=== PATIENT | male | born 1935 | race Caucasian/White ===

== ENCOUNTER 2017-05-13 22:33 | Emergency (ER) | payer OTHER ==
[2017-05-13] MEDS ORDERED: NS 0.9% 1000 ML* 1,000 ML IV SCH (23:15)
[2017-05-13] MEDS ORDERED: Lidocaine/Epineph/Tetraca SOL* (LET solution) 4 ML BTL TOPICAL ONE (23:41)
[2017-05-13] MEDS ORDERED: Gelfoam 12-7 ADSORBABL SPONGE* 1 EA SPONGE ONE (23:46)
[2017-05-14 00:36] LABS: Hematocrit 38 % (42-52); Hemoglobin 12.8 g/dl (14.0-18.0); Mean Corpuscular HGB Conc 34 g/dl (31-36); Mean Corpuscular Hemoglobin 33 pg (27-31); Mean Corpuscular Volume 98 fL (80-94); Mean Platelet Volume 9 um3 (7.4-10.4); Red Blood Count 3.85 10^6/ul (4.0-5.4); Red Cell Distribution Width 13 % (10.5-15); White Blood Count 12.1 10^3/ul (3.5-10.8)
--- NOTE | 2017-05-14 00:47 | ED ---
Abdominal Pain/Male - HPI Summary HPI Summary: Yesterday the patient had a venous cardiac ablation for atrial flutter, accessed through his R femoral vein. He came home from [facility] this afternoon and noticed he had soaked his gauze. He was treated for minor bleeding from the insertion site in [facility], including epinephrine injections. He had soaked the gauze, and was bleeding a very slow ooze on his arrival here. Denies SOB, CP, dizziness,or weakness .He is on Xarelto. 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 - Surgical History Surgery Procedure, Year, and Place: CABG, PTCA, VASECTOMY, KIDNEY STONE LITHOTRIPSY Infectious Disease History: Reports: Hx Shingles Denies: History Other Infectious Disease, Traveled Outside the in Last 30 Days - Social History Alcohol Use: Daily Alcohol Amount: 1 COCKTAIL/DAY Substance Use Type: Reports: None Smoking Status (MU): Never Smoked Tobacco Review of Systems Constitutional: Negative Eyes: Negative ENT: Negative Cardiovascular: Negative Respiratory: Negative Gastrointestinal: Negative Genitourinary: Negative Musculoskeletal: Negative Skin: Negative Neurological: Negative Psychological: Normal All Other Systems Reviewed And Are Negative: Yes Physical Exam - Summary Physical Exam Summary: The right groin was inspected, gauze was soaked, very slow ooze of blood from the site. Nonpulsatile, capillary blood. No palpable hematoma. Triage Information Reviewed: Yes Vital Signs On Initial Exam: Initial Vitals Temp Pulse Resp BP Pulse Ox 36.8 C 77 18 111/81 99 05/13/17 22:43 05/13/17 22:43 05/13/17 22:43 05/13/17 22:43 05/13/17 22:43 Vital Signs Reviewed: Yes Appearance: Positive: Well-Appearing Skin: Positive: Warm Head/Face: Positive: Normal Head/Face Inspection Eyes: Positive: Normal ENT: Positive: Normal ENT inspection Neck: Positive: Supple, Nontender Respiratory/Lung Sounds: Positive: Clear to Auscultation, Breath Sounds Present Cardiovascular: Positive: Normal, RRR Abdomen Description: Positive: Nontender, No Organomegaly Bowel Sounds: Positive: Present Neurological: Positive: Normal Psychiatric: Positive: Normal AVPU Assessment: Alert - [place] Coma Scale Best Eye Response: 4 - Spontaneous Best Motor Response: 6 - Obeys Commands Best Verbal Response: 5 - Oriented Diagnostics - Vital Signs Vital Signs Temp Pulse Resp BP Pulse Ox 05/13/17 22:43 36.8 C 77 18 111/81 99 - Laboratory Lab Results: Lab Results 05/14/17 05/14/17 Range/Units 00:15 00:15 WBC 12.1 H (3.5-10.8) 10^3/ul RBC 3.85 L (4.0-5.4) 10^6/ul Hgb 12.8 L (14.0-18.0) g/dl Hct 38 L (42-52) % MCV 98 H (80-94) fL MCH 33 H (27-31) pg MCHC 34 (31-36) g/dl RDW 13 (10.5-15) % Plt Count 147 L (150-450) 10^3/ul MPV 9 (7.4-10.4) um3 Neut % (Auto) 87.4 H (38-83) % Lymph % (Auto) 6.6 L (25-47) % Adams % (Auto) 5.8 (1-9) % Eos % (Auto) 0 (0-6) % Baso % (Auto) 0.2 (0-2) % Absolute Neuts (auto) 10.6 H (1.5-7.7) 10^3/ul Absolute Lymphs (auto) 0.8 L (1.0-4.8) 10^3/ul Absolute Monos (auto) 0.7 (0-0.8) 10^3/ul Absolute Eos (auto) 0 (0-0.6) 10^3/ul Absolute Basos (auto) 0 (0-0.2) 10^3/ul Absolute Nucleated RBC 0 10^3/ul Nucleated RBC % 0 INR (Anticoag Therapy) 1.65 H (0.89-1.11) APTT 33.7 (26.0-36.3) seconds Result Diagrams: 05/14/17 00:15 05/14/17 00:15 Lab Statement: Any lab studies that have been ordered have been reviewed, and results considered in the medical decision making process. Re-Evaluation - Re-Evaluation First Eval Re-Evaluation Time: 00:30 Change: Improved Second Eval Re-Evaluation Time: 01:00 Change: Improved - no active bleeding with ambulation and upright position Abdominal Pain Fem Course/Dx - Course Course Of Treatment: Applied pressure dressing, gel foam and LET. Successfully stopped bleeding, observed for 60+ minutes. No signso f significant blood loss. - Diagnoses Provider Diagnoses: Postoperative bleeding from incision Discharge - Discharge Plan Condition: Good Disposition: HOME Patient Education Materials: Postoperative Bleeding (ED) Referrals: Marty AUSTIN,Reese Mtz [Primary Care Provider] - 2 Days
[2017-05-14 00:55] LABS: Albumin 3.9 g/dL (3.2-5.2); BUN/Creatinine Ratio 27.3 (8-20); C Reactive Protein 5.28 mg/L (< 5.00); Calcium 9.2 mg/dL (8.6-10.3); EGFR African American 74.2 (>60); EGFR Non-African American 57.7 (>60); Globulin 2.3 g/dL (2-4); Potassium 3.9 mmol/L (3.5-5.0); Total Bilirubin 0.8 mg/dL (0.2-1.0); Total Protein 6.2 g/dL (6.4-8.9)
[2017-05-14] MEDS ORDERED: Gelfoam 12-7 ADSORBABL SPONGE* 1 EA SPONGE TOPICAL ONE (01:13)
[2017-05-14 02:01] VITALS: BP 116/79
== END 2017-05-14 01:30 | disposition home or self-care (01) ==
LOC: ED 22:33
DX: L76.22 Postprocedural hemorrhage of skin and subcutaneous tissue following other procedure (principal); Z79.01 Long term (current) use of anticoagulants; Z87.09 Personal history of other diseases of the respiratory system
CPT/HCPCS: 36415; 80053; 85025; 85610; 85730; 86140; 99283; A9270-GY

== ENCOUNTER 2017-09-24 16:22 | Emergency (ER) | payer MEDICARE, OTHER ==
[2017-09-24 16:44] VITALS: BP 130/66
--- NOTE | 2017-09-24 17:03 | UC ---
Skin Complaint HPI - HPI Summary HPI Summary: Pt presents with a tick bite to his lower back. Pt does not know how long the tick has been attached, but went hunting on 4 days ago and thinks that must be when it happened. His took the majority of the tick out, but still some pieces within the skin. He is in no pain and denies fever, chills, SOB, headache , rash, or joint swelling/pain. - History of Current Complaint Chief Complaint: UCSkin Time Seen by Provider: 09/24/17 16:48 Stated Complaint: TICK Hx Obtained From: Patient Onset/Duration: Sudden Onset Skin Exposure Onset/Duration: Days Ago Onset Severity: Mild Current Severity: Mild - Allergy/Home Medications Allergies/Adverse Reactions: Allergies Allergy/AdvReac Type Severity Reaction Status Date / Time No Known Allergies Allergy Verified 09/24/17 16:44 Review of Systems Constitutional: Negative Skin: Other - Insect bite lower back Respiratory: Negative Cardiovascular: Negative Gastrointestinal: Negative Neurological: Negative Psychological: Negative Is Patient Immunocompromised?: No All Other Systems Reviewed And Are Negative: Yes PMH/Surg Hx/FS Hx/Imm Hx Previously Healthy: Yes Cardiovascular History: Cardiac Disease, Hypertension Other History Of: Anticoagulant Therapy - Surgical History Surgical History: Yes Surgery Procedure, Year, and Place: CABG, PTCA, VASECTOMY, KIDNEY STONE LITHOTRIPSY - Social History Occupation: Retired Lives: With Family Alcohol Use: Daily Alcohol Amount: 1 COCKTAIL/DAY Substance Use Type: None Smoking Status (MU): Never Smoked Tobacco - Immunization History Most Recent Influenza Vaccination: fall 2012 Physical Exam Triage Information Reviewed: Yes Appearance: Well-Appearing, Well-Nourished Vital Signs: Initial Vital Signs Temp 97.9 F 09/24/17 16:40 Pulse 64 09/24/17 16:40 Resp 18 09/24/17 16:40 BP 130/66 09/24/17 16:40 Pulse Ox 99 09/24/17 16:40 Vital Signs Reviewed: Yes ENT: Positive: Normal ENT inspection, Hearing grossly normal, Pharynx normal, TMs normal. Negative: Pharyngeal erythema, Nasal congestion, Nasal drainage, TM bulging, TM dull, TM red, Sinus tenderness Neck: Positive: Supple, Nontender, No Lymphadenopathy Respiratory: Positive: Chest non-tender, Lungs clear, Normal breath sounds, No respiratory distress Cardiovascular: Positive: RRR, No Murmur, Pulses Normal Skin: Positive: significant lesion(s) - Approx 5mm circular area of erythema on lower left back. Centrally there are insect remains present. No streaking, drainage, or pain when palpated. Course/Dx - Course Course Of Treatment: Forceps were used to gently remove the remaining pieces of the insect. Area appears consistent with a tick bite. Discussed treatment options such as watchful waiting, one day course of antibiotics, or 21 day course of antibiotics and the patient elected to have the 21 day course of doxycycline. - Differential Diagnoses - Skin Complaint Differential Diagnoses: Foreign Body, Tick Born Illness - Diagnoses Provider Diagnoses: Insect (tick) bite lower back Discharge - Discharge Plan Condition: Stable Disposition: HOME Prescriptions: DOXYcycline CAP(*) [DOXYcycline 100MG CAP(*)] 100 mg PO DAILY #21 cap Patient Education Materials: [place] Spotted Fever (ED), Lyme Disease ( ED) Referrals: Marty AUSTIN,Reese Mtz [Primary Care Provider] - Additional Instructions: 1) Doxycycline 100mg one capsule by mouth daily for 21 days. 2) If you develops any signs or symptoms of lyme disease such as bull's eye rash , joint pain or swelling, headache, or unusual symptoms - please call our office or go to ED. If you develop a fever, SOB, chest pain, new or worsening symptoms - please call our office or go to ED
== END 2017-09-24 17:19 | disposition home or self-care (01) ==
LOC: UCEAST 16:22
DX: S30.860A Insect bite (nonvenomous) of lower back and pelvis, initial encounter (principal); I10 Essential (primary) hypertension; I51.9 Heart disease, unspecified; W57.XXXA Bitten or stung by nonvenomous insect and other nonvenomous arthropods, initial encounter; Y92.9 Unspecified place or not applicable
CPT/HCPCS: 99212; G0463

== ENCOUNTER 2018-01-02 11:17 | Emergency (ER) | payer MEDICARE ==
--- NOTE | 2018-01-02 13:40 | RAD ---
HISTORY: Right lower shoulder pain COMPARISONS: September 30, 2017 TECHNIQUE: Multiple transverse and longitudinal ultrasound images were obtained of the right lower extremity from the level of the common femoral vein inferiorly through to the infrapopliteal veins using grayscale, color Doppler, and spectral Doppler imaging with and without compression and with augmentation. Comparison images were obtained of the contralateral common femoral vein. FINDINGS: VEINS: The venous system of the right lower extremity is compressible throughout its course, with normal flow on color Doppler imaging and normal response to augmentation on spectral Doppler imaging. SOFT TISSUES: Unremarkable. OTHER FINDINGS: No images are submitted of the Vivas cyst or hematoma noted on the previous examination. IMPRESSION: NO RIGHT LOWER EXTREMITY DEEP VEIN THROMBOSIS
--- NOTE | 2018-01-02 14:04 | ED ---
Lower Extremity - HPI Summary HPI Summary: She is an otherwise healthy 82-year-old male who presents to the ED with right inner thigh ecchymosis and right femur pain after sustaining a fall to the hip 5 days ago. 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 Denies any other injury during the fall. He is concerned over a DVT due to the bruising. Denies any pain in the calf, redness, swelling, or warmth. He notes the bruising just began yesterday. Denies any numbness, tingling, temperature changes to the leg. He is still ambulating well, but with pain. Denies any pain in the hip or the knee. He denies hitting his head or loss of consciousness. Family at bedside. - History of Current Complaint Chief Complaint: EDExtremityLower Stated Complaint: POSSIBLE BLOOD CLOT RT LEG Time Seen by Provider: 01/02/18 12:41 Hx Obtained From: Patient Mechanism Of Injury: Blunt Trauma Onset of Pain: Days Onset/Duration: Days Severity Initially: Mild Severity Currently: Mild Pain Intensity: 8 Pain Scale Used: 0-10 Numeric Timing: Constant Location: Is Discrete @ - Right inner thigh Character Of Pain: Aching Associated Signs And Symptoms: Positive: Bruising. Negative: Swelling, Redness Alleviating Factor(s): Rest Able to Bear Weight: No - Risk Factors Gout Risk Factors: Age Over 40, Male DVT Risk Factors: Negative Septic Arthritis Risk Factor: Negative - Allergies/Home Medications Allergies/Adverse Reactions: Allergies Allergy/AdvReac Type Severity Reaction Status Date / Time No Known Allergies Allergy Verified 09/24/17 16:44 PMH/Surg Hx/FS Hx/Imm Hx Previously Healthy: Yes Endocrine/Hematology History: Reports: Hx Anticoagulant Therapy Denies: Hx Diabetes, Hx Thyroid Disease Cardiovascular History: Reports: Hx Atrial Fibrillation, Hx Hypertension Respiratory History: Denies: Hx Asthma, Hx Chronic Obstructive Pulmonary Disease (COPD) GI History: Reports: Hx Ulcer - stoamch bleed 2012 - Cancer History Cancer Type, 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 - Surgical History Surgery Procedure, Year, and Place: CABG, PTCA, VASECTOMY, KIDNEY STONE LITHOTRIPSY - Immunization History Date of Influenza Vaccine: 08/2017 Immunizations Up to Date: Yes Infectious Disease History: No Infectious Disease History: Reports: Hx Shingles Denies: Hx Clostridium Difficile, Hx Hepatitis, Hx Human Immunodeficiency Virus (HIV), Hx of Known/Suspected MRSA, Hx Tuberculosis, Hx Known/Suspected VRE , Hx Known/Suspected VRSA, History Other Infectious Disease, Traveled Outside the [place] in Last 30 Days - Family History Known Family History: Positive: Cardiac Disease - Social History Occupation: Unemployed Lives: With Family Alcohol Use: None Alcohol Amount: 1 COCKTAIL/DAY Hx Substance Use: Yes Substance Use Type: Reports: None Hx Tobacco Use: No Smoking Status (MU): Never Smoked Tobacco Review of Systems Constitutional: Negative Negative: Fever, Chills, Fatigue Cardiovascular: Negative Respiratory: Negative Positive: no symptoms reported, pain Positive: Arthralgia - right inner thigh pain Positive: Bruising Neurological: Negative All Other Systems Reviewed And Are Negative: Yes Physical Exam Triage Information Reviewed: Yes Vital Signs On Initial Exam: Initial Vitals Temp Pulse Resp BP Pulse Ox 97.7 F 78 18 101/62 98 01/02/18 11:25 01/02/18 11:25 01/02/18 11:25 01/02/18 11:25 01/02/18 11:25 Vital Signs Reviewed: Yes Appearance: Positive: Well-Appearing, Well-Nourished Skin: Positive: Warm, Skin Color Reflects Adequate Perfusion, Other - Ecchymosis to the right inner thigh Head/Face: Positive: Normal Head/Face Inspection Eyes: Positive: EOMI, MADDY, Conjunctiva Clear Neck: Positive: Supple, No Lymphadenopathy Respiratory/Lung Sounds: Positive: Clear to Auscultation, Breath Sounds Present Cardiovascular: Positive: RRR, Pulses are Symmetrical in both Upper and Lower Extremities Musculoskeletal: Positive: Pain @ - Right inner thigh with ecchymosis Neurological: Positive: Speech Normal Psychiatric: Positive: Normal, Affect/Mood Appropriate AVPU Assessment: Alert Diagnostics - Vital Signs Vital Signs Temp Pulse Resp BP Pulse Ox 01/02/18 11:25 97.7 F 78 18 101/62 98 - Laboratory Lab Statement: Any lab studies that have been ordered have been reviewed, and results considered in the medical decision making process. Lower Extremity Course/Dx - Course Course Of Treatment: During the course of treatment, the patient is evaluated for right upper leg pain and ecchymosis. He is concerned over a DVT. Currently taking anticoagulation medications for previous PE 2 years ago. Denies any calf pain. Denies any travel or smoking history. He is requesting a Doppler study. I have advised to obtain an x-ray of the femur and hip as well due to bruising and pain. X-rays and Doppler obtained and all negative. Patient is ambulating well. He is encouraged Tylenol 650 mg for pain. Encouraged moist heat to the area to promote blood flow. He is okay for discharge at this time and I have advised he follow-up with his PCP soon. - Diagnoses Provider Diagnoses: Hematoma of leg Discharge - Discharge Plan Condition: Stable Disposition: HOME Patient Education Materials: Hematoma (ED) Referrals: Marty AUSTIN,Reese Mtz [Primary Care Provider] - Additional Instructions: warm compresses to the area to promote blood flow Tylenol 650 mg for any discomfort Rest the leg, but continued to provide full range of motion to prevent stiffness Please follow-up with your PCP
--- NOTE | 2018-01-02 14:15 | RAD ---
INDICATION: Leg injury COMPARISON: None TECHNIQUE: AP and lateral views were obtained. FINDINGS: There is no acute fracture or dislocation. There are vascular calcifications. There is prior venous stripping. The soft tissues are otherwise normal. IMPRESSION: NO ACUTE BONY FINDINGS.
--- NOTE | 2018-01-02 14:16 | RAD ---
INDICATION: Right hip pain COMPARISON: None TECHNIQUE: An AP view of the pelvis and AP views of the hip in neutral and abducted position were obtained FINDINGS: Bones: There are no acute bony findings. There is degenerative change of the lower lumbar spine. Joint spaces: The hips articulate normally. The joint spaces are preserved. SI joints/symphysis: The SI joints and symphysis are intact. Other: None IMPRESSION: NO ACUTE BONY FINDINGS.
[2018-01-02 14:52] VITALS: BP 117/73
== END 2018-01-02 14:50 | disposition home or self-care (01) ==
LOC: ED 11:17
DX: S70.11XA Contusion of right thigh, initial encounter (principal); W19.XXXA Unspecified fall, initial encounter; Y92.9 Unspecified place or not applicable
CPT/HCPCS: 99282

== ENCOUNTER 2019-06-04 15:05 | Emergency (ER) | payer MEDICARE ==
[2019-06-04 15:18] VITALS: BP 139/79
--- NOTE | 2019-06-04 15:30 | UC ---
Ear Complaint HPI - HPI Summary HPI Summary: 84-year-old male who has a history of idiopathic right-sided hearing loss 4 years ago. He's was able to have a steroid injection at the time which recovered 40% of his hearing. He states today when he was walking he put his ear but in any could not hear the music any change earplugs and still could not hear the music therefore he thinks this is happening again. - History of Current Complaint Chief Complaint: UCEar Stated Complaint: HEARING LOSS Time Seen by Provider: 06/04/19 15:15 Hx Obtained From: Patient Onset/Duration: Other - Just noticed this morning when he put his earbuds in, he denies ear pain. Severity Initially: Mild Severity Currently: None Pain Intensity: 0 Aggravating Factors: Nothing Alleviating Factors: Nothing Associated Signs/Symptoms: Positive: Hearing Loss. Negative: URI Symptoms - Allergies/Home Medications Allergies/Adverse Reactions: Allergies Allergy/AdvReac Type Severity Reaction Status Date / Time No Known Allergies Allergy Verified 06/04/19 15:18 Home Medications: Home Medications Aspirin 81 mg CHEW TAB* [Aspirin Low Dose TAB*] 81 mg PO DAILY 06/04/19 [ History Confirmed 06/04/19] PMH/Surg Hx/FS Hx/Imm Hx Previously Healthy: Yes Cardiovascular History: Hypertension, Atrial Fibrillation GI/ History: Ulcer Other History Of: Anticoagulant Therapy - Surgical History Surgical History: Yes Surgery Procedure, Year, and Place: CABG 2009, PTCA, VASECTOMY, KIDNEY STONE LITHOTRIPSY - Family History Known Family History: Positive: Cardiac Disease - Social History Occupation: Retired Alcohol Use: Daily Alcohol Amount: 1 COCKTAIL/DAY Substance Use Type: None Smoking Status (MU): Never Smoked Tobacco - Immunization History Most Recent Influenza Vaccination: fall 2012 Review of Systems All Other Systems Reviewed And Are Negative: Yes ENT: Positive: Other - Hearing loss right ear noted today. Is Patient Immunocompromised?: No Physical Exam Triage Information Reviewed: Yes Appearance: Well-Appearing, No Pain Distress, Well-Nourished Vital Signs: Initial Vital Signs Temp 98 F 06/04/19 15:11 Pulse 76 06/04/19 15:11 Resp 16 06/04/19 15:11 BP 139/79 06/04/19 15:11 Pulse Ox 98 06/04/19 15:11 Vital Signs Reviewed: Yes ENT: Positive: TMs normal, Other - No cerumen impaction. No lesions noted in ear canal. Psychological Exam: Normal Ear Complaint Course/Dx - Course Course Of Treatment: Patient is comfortable here and does not have any ear pain. After discussing this with Dr. Vale the patient was advised to go to [facility] or [place] emergency room however he does not want to go anywhere other than [place] for treatment. He refuses for me to call the ear nose and throat physician at [facility] for a consult. He states that he will go to the ENT office to see if he can have an appointment for today and if not then he will drive to [facility] Emergency room. MD addendum - Pt was strongly encouraged to go to the ED immediately. He does not want to go to [facility], nor does he want [facility] involved. Encouraged to go to [facility] (closest facility with availability of emergent / urgent id [id number] ENT). He reports that he will consider [facility] ED if [place] [facility] not available. - Differential Dx/Diagnosis Provider Diagnosis: Hearing loss in right ear Discharge - Sign-Out/Discharge Documenting (check all that apply): Patient Departure All imaging exams completed and their final reports reviewed: No Studies - Discharge Plan Condition: Fair Disposition: HOME Referrals: Marty AUSTIN,Reese Mtz [Primary Care Provider] - Additional Instructions: Follow-up with your ear nose and throat physician as soon as possible or go to the emergency room at [place]. - Billing Disposition and Condition Condition: FAIR Disposition: Home
== END 2019-06-04 15:35 | disposition home or self-care (01) ==
LOC: UCEAST 15:05
DX: H91.91 Unspecified hearing loss, right ear (principal); I10 Essential (primary) hypertension; I48.91 Unspecified atrial fibrillation; Z79.01 Long term (current) use of anticoagulants; Z79.82 Long term (current) use of aspirin
CPT/HCPCS: 99211; G0463

== ENCOUNTER 2019-12-29 15:12 | Emergency (ER) | payer MEDICARE ==
[2019-12-29 15:30] VITALS: BP 148/84
--- NOTE | 2019-12-29 15:47 | UC ---
Throat Pain/Nasal Sujit HPI - HPI Summary HPI Summary: 84-year-old male comes in with chief complaint of a days of upper respiratory tract infection symptoms. He's had runny nose sore throat cough chest congestion. Overall he does feel like he is improving however he still having some chest congestion. He's had yellow rhinorrhea. 3-4 days ago he noticed when he urinated there was a lot of bubbles in the toilet after urination. Denies feeling any bubbles in the urine stream. No burning with urination no abdominal pain no flank pain. Patient reports in the past he's had elevated BUN levels and would like to ensure that his kidney function is not compromised. - History of Current Complaint Chief Complaint: UCRespiratory Stated Complaint: COLD SYMPTOMS, KIDNEY ISSUE Time Seen by Provider: 12/29/19 15:30 Pain Intensity: 0 - Allergies/Home Medications Allergies/Adverse Reactions: Allergies Allergy/AdvReac Type Severity Reaction Status Date / Time No Known Allergies Allergy Verified 12/29/19 15:21 Home Medications: Home Medications Apixaban [Eliquis] 5 mg PO BID 12/29/19 [History Confirmed 12/29/19] Rosuvastatin (NF) [Crestor (NF)] 40 mg PO QPM 12/29/19 [History Confirmed ] PMH/Surg Hx/FS Hx/Imm Hx Previously Healthy: Yes Endocrine History: Dyslipidemia Cardiovascular History: Cardiac Disease, Hypertension, Myocardial Infarction GI/ History: Kidney Stones, Other - Reports elevated BUN in the past. Other History Of: Anticoagulant Therapy - Surgical History Surgical History: Yes Surgery Procedure, Year, and Place: CABG 2009, PTCA, VASECTOMY, KIDNEY STONE LITHOTRIPSY - Family History Known Family History: Positive: Cardiac Disease - Social History Alcohol Use: Daily Alcohol Amount: 1 COCKTAIL/DAY Substance Use Type: None Smoking Status (MU): Never Smoked Tobacco - Immunization History Most Recent Influenza Vaccination: fall 2012 Review of Systems All Other Systems Reviewed And Are Negative: Yes Constitutional: Positive: Other - see hpi Skin: Positive: Negative Eyes: Positive: Negative ENT: Positive: Sore Throat, Nasal Discharge, Sinus Congestion Respiratory: Positive: Cough, Other - see hpi Cardiovascular: Positive: Negative Gastrointestinal: Positive: Negative Genitourinary: Positive: Other - see hpi Motor: Positive: Negative Neurovascular: Positive: Negative Musculoskeletal: Positive: Negative Neurological: Positive: Negative Psychological: Positive: Negative Is Patient Immunocompromised?: No Physical Exam Triage Information Reviewed: Yes Appearance: Well-Appearing, No Pain Distress, Well-Nourished Vital Signs: Initial Vital Signs Temp 99.0 F 12/29/19 15:24 Pulse 67 12/29/19 15:24 Resp 16 12/29/19 15:24 BP 148/84 12/29/19 15:24 Pulse Ox 99 12/29/19 15:24 Vital Signs Reviewed: Yes Eye Exam: Normal Eyes: Positive: Conjunctiva Clear ENT: Positive: Pharynx normal, Nasal congestion, Nasal drainage, TMs normal Neck: Positive: Supple Respiratory: Positive: No respiratory distress, Rhonchi Cardiovascular: Positive: RRR Abdomen Description: Positive: Nontender, Soft. Negative: CVA Tenderness (R), CVA Tenderness (L) Bowel Sounds: Positive: Present Musculoskeletal: Positive: Strength Intact, ROM Intact Neurological: Positive: Alert, Muscle Tone Normal Psychological: Positive: Age Appropriate Behavior Skin Exam: Normal Throat Pain/Nasal Course/Dx - Differential Dx/Diagnosis Provider Diagnosis: Bronchitis, Urinary symptom or sign Discharge ED - Sign-Out/Discharge Documenting (check all that apply): Patient Departure All imaging exams completed and their final reports reviewed: No Studies - Discharge Plan Condition: Stable Disposition: HOME Patient Education Materials: Acute Bronchitis (ED) Referrals: Marty AUSTIN,Reese Mtz [Primary Care Provider] - Additional Instructions: FOLLOW UP WITH YOUR DOCTOR IF NOT COMPLETELY IMPROVED. GET REEVALUATED SOONER IF NOT IMPROVED OR WORSE OR ANY QUESTIONS OR CONCERNS. - Billing Disposition and Condition Condition: STABLE Disposition: Home
[2019-12-29 19:04] LABS: ABS Eosinophils 0.1 10^3/ul (0-0.6); ABS Lymphocytes 1.7 10^3/ul (1.0-4.8); ABS Monocytes 0.4 10^3/ul (0-0.8); ABS Neutrophils 2.7 10^3/ul (1.5-7.7); Eosinophil % 2.5 %; Hematocrit 37 % (42-52); Hemoglobin 13.4 g/dL (14.0-18.0); Lymphocyte % 34.3 %; Mean Corpuscular HGB Conc 36 g/dL (31-36); Mean Corpuscular Hemoglobin 34 pg (27-31); Mean Corpuscular Volume 95 fL (80-94); Mean Platelet Volume 8.5 fL (7.4-10.4); Platelet Count 204 10^3/uL (150-450); Red Cell Distribution Width 13 % (10-15); White Blood Count 4.9 10^3/uL (3.5-10.8)
[2019-12-29 19:14] LABS: Albumin 4.2 g/dL (3.2-5.2); Albumin/Globulin Ratio 1.8 (1-3); BUN/Creatinine Ratio 19.8 (8-20); Calcium 9.8 mg/dL (8.6-10.3); EGFR African American 85.6 (>60); EGFR Non-African American 70.7 (>60); Globulin 2.3 g/dL (2-4); Total Bilirubin 0.9 mg/dL (0.2-1.0); Total Protein 6.5 g/dL (6.4-8.9)
--- NOTE | 2019-12-30 07:06 | UC ---
- Progress Note Progress Note: Progress note: 84-year-old with bronchitis. Hemoglobin and hematocrit come back low at 3.9 and 13.4, respectively. Previous readings in the same range, consistent with mild anemia. Patient is diagnosed with bronchitis. WBC is 4.9. No change in current treatment. Cesar Antonio M.D. Course/Dx - Diagnoses Provider Diagnoses: Bronchitis, Urinary symptom or sign Discharge ED - Sign-Out/Discharge Documenting (check all that apply): Post-Discharge Follow Up All imaging exams completed and their final reports reviewed: No Studies - Discharge Plan Condition: Stable Disposition: HOME Prescriptions: Cefdinir [Cefdinir 300 MG CAP] 300 mg PO BID #20 cap Patient Education Materials: Acute Bronchitis (ED) Referrals: Marty AUSTIN,Reese Mtz [Primary Care Provider] - Additional Instructions: FOLLOW UP WITH YOUR DOCTOR IF NOT COMPLETELY IMPROVED. GET REEVALUATED SOONER IF NOT IMPROVED OR WORSE OR ANY QUESTIONS OR CONCERNS. - Billing Disposition and Condition Condition: STABLE Disposition: Home
== END 2019-12-29 16:25 | disposition home or self-care (01) ==
LOC: UCEAST 15:12
DX: J40 Bronchitis, not specified as acute or chronic (principal); I10 Essential (primary) hypertension; I25.2 Old myocardial infarction; R39.89 Other symptoms and signs involving the genitourinary system; Z79.01 Long term (current) use of anticoagulants
CPT/HCPCS: 36415; 80053; 81003; 85025; 87086; 99212; G0463